=== PATIENT | female | born 1975 | race Caucasian/White ===

== ENCOUNTER 2017-01-27 15:39 | Emergency (ER) | payer MEDICARE, MEDICAID ==
[~2017-01-27] VITALS: Ht 162.6 cm; Wt 77.6 kg
[~2017-01-27 15:39] MED LIST: ARIP5TAB6 PO; ARIPIPRAZOLE; DIAZ5TAB PO; SUMA50TA3 PO; ZOLP-413; [UNRECOGNIZED DRUG - CODE] PO
[2017-01-27] MEDS ORDERED: OXYC-229 PO (16:25)
[2017-01-27] MEDS ORDERED: ZOLP-413 PO (16:25)
[2017-01-27] MEDS ORDERED: SODIUM CHLORIDE FLUSH 10ML SYR IVF ONE (17:00)
[2017-01-27] MEDS ORDERED: SODIUM CHLORIDE 0.9% 1,000ML IVBOLUS ONE (17:00)
[2017-01-27 17:07] LABS: ASPARTATE AMINO TRANSFERASE 17 U/L (15-37); BLOOD UREA NITROGEN 19 mg/dL (7-18)
[2017-01-27] MEDS ORDERED: KETOROLAC 30 MG/1 ML IM ONE (18:00)
[2017-01-27] MEDS ORDERED: KETOROLAC 30 MG/1 ML ONE (18:03)
[2017-01-27 18:08] VITALS: BP 129/66
== END 2017-01-27 18:15 | disposition home or self-care (01) ==
LOC: ED 18:00
DX: N30.00 Acute cystitis without hematuria (principal); R10.31 Right lower quadrant pain
CPT/HCPCS: 36415; 80053; 81001; 83690; 84703; 85025; 87077; 87086; 87186; 96360; 96372; 99284; J1885; J7030

== ENCOUNTER 2018-12-05 20:10 | Emergency (ER) | payer MEDICARE, MEDICAID ==
[~2018-12-05] VITALS: Ht 160 cm; Wt 78.0 kg
[~2018-12-05 20:10] MED LIST changes: +ARIP5TAB13 PO; -ARIP5TAB6 PO; +OXYC-307 PO; +ZOLP-413 PO; +[UNRECOGNIZED DRUG - CODE] PO; -[UNRECOGNIZED DRUG - CODE] PO
[2018-12-05 20:14] VITALS: BP 121/84
[2018-12-05] MEDS ORDERED: AZITHROMYCIN 250 MG TABLET ONE (20:29)
[2018-12-05] MEDS ORDERED: ACETAMINOPHEN 500 MG TABLET ONE (20:29)
[2018-12-05] MEDS ORDERED: IBUPROFEN 600 MG TABLET ONE (20:29)
[2018-12-05] MEDS ORDERED: AZITHROMYCIN 500 MG TABLET PO ONE (20:30)
[2018-12-05] MEDS ORDERED: IBUPROFEN 600 MG TABLET PO ONE (20:30)
[2018-12-05] MEDS ORDERED: LIDOCAINE 1%, 2ML INFIL ONE (20:30)
[2018-12-05] MEDS ORDERED: ACETAMINOPHEN 500 MG TABLET PO ONE (20:30)
== END 2018-12-05 20:54 | disposition home or self-care (01) ==
LOC: ED 20:45
DX: H66.93 Otitis media, unspecified, bilateral (principal)
CPT/HCPCS: 99284; J3490

== ENCOUNTER 2019-07-25 04:06 | Emergency (ER) | payer MEDICARE ==
[~2019-07-25] VITALS: Ht 160 cm; Wt 80.5 kg
[2019-07-25 04:11] VITALS: BP 136/81
[2019-07-25] MEDS ORDERED: DEXAMETHASONE 4 MG TABLET ONE (04:30)
[2019-07-25] MEDS ORDERED: DEXAMETHASONE 4 MG TABLET PO ONE (04:30)
[2019-07-25] MEDS ORDERED: BENZONATATE 100 MG CAPSULE ONE (04:30)
[2019-07-25] MEDS ORDERED: BENZONATATE 100 MG CAPSULE PO ONE (04:30)
== END 2019-07-25 04:37 | disposition home or self-care (01) ==
LOC: ED 04:30
DX: J20.8 Acute bronchitis due to other specified organisms (principal); J45.909 Unspecified asthma, uncomplicated; F17.200 Nicotine dependence, unspecified, uncomplicated; M06.9 Rheumatoid arthritis, unspecified
CPT/HCPCS: 99283

== ENCOUNTER 2020-01-15 09:51 | Emergency (ER) | payer MEDICARE, MEDICAID ==
[~2020-01-15] VITALS: Ht 160 cm; Wt 77.0 kg
--- NOTE | 2020-01-15 10:26 | NUR ---
PACKAGE LINER: PT TO ROOM FROM LOBBY AT THIS TIME. DOUG
--- NOTE | 2020-01-15 11:42 | NUR ---
[facility] CALLED PER PT REQUEST. PT TO FILL OUT ONLINE REPORT.
[2020-01-15 11:53] LABS: BASOPHILS # (AUTO) 0.05 x10^3/uL (0-0.1); BASOPHILS % (AUTO) 0 % (0-1); EOSINOPHILS # (AUTO) 0.21 x10^3/uL (0-0.4); EOSINOPHILS % (AUTO) 2 % (1-7); LYMPHOCYTES # (AUTO) 3.28 x10^3/uL (1-3.4); LYMPHOCYTES % (AUTO) 26 % (22-44); MD NO; MEAN CORPUSCULAR HEMOGLOBIN 30.7 pg (27.0-34.8); MEAN CORPUSCULAR HGB CONC 33.7 g/dL (32.4-35.8); MEAN CORPUSCULAR VOLUME 90.8 fL (80-100); MEAN PLATELET VOLUME 8.7 fL (7.4-10.4); MONOCYTES # (AUTO) 0.61 x10^3/uL (0.2-0.8); MONOCYTES % (AUTO) 5 % (2-9); NEUTROPHILS # (AUTO) 8.36 x10^3/uL (1.8-6.8); NEUTROPHILS % (AUTO) 67 % (42-75); PLATELET COUNT 360 x10^3/uL (130-400); RED BLOOD COUNT 4.41 x10^6/uL (3.82-5.3); RED CELL DISTRIBUTION WIDTH 14.2 % (9.6-15.2)
[2020-01-15 12:01] LABS: ALBUMIN 3.9 g/dL (3.4-5.0); CALCIUM 9.2 mg/dL (8.5-10.1); CHLORIDE 110 mmol/L (98-107); CREATININE 0.86 mg/dL (0.55-1.02)
[2020-01-15 12:13] LABS: ANION GAP 5 mmol/L (5-15)
[2020-01-15 12:18] LABS: MICROSCOPIC INDICATED
[2020-01-15] MEDS ORDERED: HYDROcodone/APAP 5/325 TABLET ONE (12:27)
[2020-01-15] MEDS ORDERED: HYDROcodone/APAP 5/325 TABLET PO ONE (12:30)
--- NOTE | 2020-01-15 12:51 | NUR ---
CHART UP FOR MD RECHECK. PT AWARE. PT MEDICATED FOR PAIN PER MD ORDER.
[2020-01-15 13:34] VITALS: BP 110/75
--- NOTE | 2020-01-15 13:42 | NUR ---
PT LEFT [facility] IN THE ROOM. [facility] GIVEN TO SECURITY.
== END 2020-01-15 13:36 | disposition home or self-care (01) ==
LOC: ED 11:20
DX: S90.01XA Contusion of right ankle, initial encounter (principal); S90.31XA Contusion of right foot, initial encounter; S09.90XA Unspecified injury of head, initial encounter; Z88.8 Allergy status to other drugs, medicaments and biological substances; Y04.8XXA Assault by other bodily force, initial encounter; Y93.89 Activity, other specified; Y92.009 Unspecified place in unspecified non-institutional (private) residence as the place of occurrence of the external cause; Y99.8 Other external cause status
CPT/HCPCS: 36415; 70450; 72125; 80048; 81001; 81025; 82040; 85025; 87086; 99285

== ENCOUNTER 2020-01-29 19:32 | Emergency (ER) | payer MEDICARE, MEDICAID ==
[~2020-01-29] VITALS: Ht 160 cm; Wt 79.2 kg
[2020-01-29 19:37] VITALS: BP 96/50
[2020-01-29] MEDS ORDERED: ACETAMINOPHEN 500 MG TABLET ONE (20:21)
[2020-01-29] MEDS ORDERED: PROCHLORPERAZINE 10MG TABLET ONE (20:21)
[2020-01-29] MEDS ORDERED: ACETAMINOPHEN 500 MG TABLET PO ONE (20:30)
[2020-01-29] MEDS ORDERED: PROCHLORPERAZINE 5 MG TABLET PO ONE (20:30)
[2020-01-29] MEDS ORDERED: LIDOCAINE-MPF 1%, 5ML ONE (20:46)
[2020-01-29] MEDS ORDERED: LIDOCAINE 1%, 10ML INFIL ONE (21:00)
[2020-01-29] MEDS ORDERED: LIDOCAINE-MPF 1%, 2ML INFIL ONE (21:00)
== END 2020-01-29 21:27 | disposition home or self-care (01) ==
LOC: ED 21:10
DX: G43.009 Migraine without aura, not intractable, without status migrainosus (principal); H66.92 Otitis media, unspecified, left ear; F17.200 Nicotine dependence, unspecified, uncomplicated; Z90.89 Acquired absence of other organs
CPT/HCPCS: 99283; J3490; Q0164

== ENCOUNTER 2020-02-16 10:09 | Emergency (ER) | payer MEDICAID, MEDICARE ==
[~2020-02-16] VITALS: Ht 160 cm; Wt 79.5 kg
--- NOTE | 2020-02-16 10:41 | NUR ---
PT STATES LT SIDED EAR INFECTION, ON ABX. PT STATES LT EAR PAIN STILL AND NOW HAS VAGINAL DISCHARGE. UA COLLECTED, SENT TO LAB. WILL FOLLOW ORDERS.
[2020-02-16 10:53] LABS: MICROSCOPIC INDICATED
[2020-02-16] MEDS ORDERED: KETOROLAC 30 MG/1 ML IM ONE (11:00)
[2020-02-16] MEDS ORDERED: KETOROLAC 60 MG/2 ML ONE (11:07)
[2020-02-16 11:10] LABS: BASOPHILS # (AUTO) 0.06 x10^3/uL (0-0.1); BASOPHILS % (AUTO) 1 % (0-1); EOSINOPHILS # (AUTO) 0.19 x10^3/uL (0-0.4); EOSINOPHILS % (AUTO) 2 % (1-7); LYMPHOCYTES # (AUTO) 3.06 x10^3/uL (1-3.4); LYMPHOCYTES % (AUTO) 27 % (22-44); MD NO; MEAN CORPUSCULAR HEMOGLOBIN 30.1 pg (27.0-34.8); MEAN CORPUSCULAR HGB CONC 32.4 g/dL (32.4-35.8); MEAN CORPUSCULAR VOLUME 92.7 fL (80-100); MONOCYTES # (AUTO) 0.72 x10^3/uL (0.2-0.8); MONOCYTES % (AUTO) 6 % (2-9); NEUTROPHILS % (AUTO) 65 % (42-75); PLATELET COUNT 327 x10^3/uL (130-400); RED BLOOD COUNT 4.32 x10^6/uL (3.82-5.3); RED CELL DISTRIBUTION WIDTH 14.6 % (9.6-15.2)
[2020-02-16 11:13] LABS: CLUE CELLS NONE SEEN (NONE SEEN)
[2020-02-16 11:14] LABS: WET PREP WBCS MANY (FEW)
[2020-02-16 11:22] LABS: ALBUMIN 3.6 g/dL (3.4-5.0); ANION GAP 5 mmol/L (5-15); CALCIUM 9.1 mg/dL (8.5-10.1); CHLORIDE 110 mmol/L (98-107); CREATININE 0.83 mg/dL (0.55-1.02)
[2020-02-16] MEDS ORDERED: CEFTRIAXONE 250 MG IM ONE (11:30)
[2020-02-16] MEDS ORDERED: AZITHROMYCIN 500 MG TABLET PO ONE (11:30)
--- NOTE | 2020-02-16 11:30 | NUR ---
PT RESTING IN BED, NO DISTRESS. AWAITING ALL RESULTS. CONT TO MONITOR.
[2020-02-16] MEDS ORDERED: AZITHROMYCIN 500 MG TABLET ONE (11:48)
[2020-02-16] MEDS ORDERED: CEFTRIAXONE 250 MG ONE (11:48)
[2020-02-16 12:11] LABS: HCG UR SG 1.026 (1.003-1.030)
--- NOTE | 2020-02-16 12:51 | NUR ---
PT GIVEN CRACKERS AND FOOD PER REQUEST. ALL RESULTS BACK, UP FOR ERMD RECHECK. WILL FOLLOW ORDERS.
[2020-02-16 13:09] VITALS: BP 108/78
--- NOTE | 2020-02-16 13:09 | NUR ---
PT D/C PER ORDERS. HAS ALL OWN BELONGINGS UPON D/C.
== END 2020-02-16 13:11 | disposition home or self-care (01) ==
LOC: ED 11:12
DX: A56.09 Other chlamydial infection of lower genitourinary tract (principal); H60.502 Unspecified acute noninfective otitis externa, left ear; Z88.1 Allergy status to other antibiotic agents; Z88.8 Allergy status to other drugs, medicaments and biological substances
CPT/HCPCS: 36415; 80048; 81001; 81025; 82040; 85025; 87077; 87086; 87210; 87491; 87591; 87808; 96372; 99284; J0696; J1885; 87186

== ENCOUNTER 2020-03-03 07:41 | Emergency (ER) | payer MEDICARE, MEDICAID ==
[~2020-03-03] VITALS: Ht 160 cm; Wt 79.4 kg
[2020-03-03 08:16] LABS: BASOPHILS # (AUTO) 0.05 x10^3/uL (0-0.1); BASOPHILS % (AUTO) 1 % (0-1); EOSINOPHILS # (AUTO) 0.13 x10^3/uL (0-0.4); EOSINOPHILS % (AUTO) 1 % (1-7); LYMPHOCYTES # (AUTO) 3.11 x10^3/uL (1-3.4); LYMPHOCYTES % (AUTO) 32 % (22-44); MD NO; MEAN CORPUSCULAR HEMOGLOBIN 30.3 pg (27.0-34.8); MEAN CORPUSCULAR HGB CONC 32.7 g/dL (32.4-35.8); MEAN CORPUSCULAR VOLUME 92.4 fL (80-100); MEAN PLATELET VOLUME 7.7 fL (7.4-10.4); MONOCYTES # (AUTO) 0.61 x10^3/uL (0.2-0.8); MONOCYTES % (AUTO) 6 % (2-9); NEUTROPHILS # (AUTO) 5.72 x10^3/uL (1.8-6.8); NEUTROPHILS % (AUTO) 60 % (42-75); PLATELET COUNT 325 x10^3/uL (130-400); RED BLOOD COUNT 4.32 x10^6/uL (3.82-5.3); RED CELL DISTRIBUTION WIDTH 14.3 % (9.6-15.2)
[2020-03-03] MEDS ORDERED: ONDANSETRON 2MG/ML, 2ML ONE (08:16)
[2020-03-03] MEDS ORDERED: MORPHINE SULFATE 4 MG/ML, 1ML ONE (08:16)
[2020-03-03 08:25] LABS: MICROSCOPIC INDICATED
[2020-03-03 08:28] LABS: ALANINE AMINOTRANSFERASE 27 U/L (12-78); ANION GAP 9 mmol/L (5-15); CHLORIDE 109 mmol/L (98-107); CREATININE 0.83 mg/dL (0.55-1.02)
[2020-03-03] MEDS ORDERED: MORPHINE SULFATE 4 MG/ML, 1ML IVPush PRN (08:30)
[2020-03-03] MEDS ORDERED: SODIUM CHLORIDE FLUSH 10ML SYR IVF ONE (08:30)
[2020-03-03] MEDS ORDERED: ONDANSETRON 2MG/ML, 2ML IVPush ONE (08:30)
[2020-03-03 08:32] LABS: ALKALINE PHOSPHATASE 90 U/L (45-117); BILIRUBIN,TOTAL 0.8 mg/dL (0.2-1.0); TOTAL PROTEIN 7.2 g/dL (6.4-8.2)
--- NOTE | 2020-03-03 08:37 | NUR ---
BREAK RN: PT TAKEN TO IMAGING IN STABLE CONDITION.
[2020-03-03 08:39] VITALS: BP 105/64
[2020-03-03] MEDS ORDERED: ONDANSETRON ODT 4 MG PO ONE (09:00)
[2020-03-03] MEDS ORDERED: KETOROLAC 30 MG/1 ML ONE (09:19)
[2020-03-03] MEDS ORDERED: KETOROLAC 30 MG/1 ML IM ONE (09:30)
--- NOTE | 2020-03-03 09:33 | NUR ---
Patient given discharge instructions and they have confirmed that they understand the instructions. Patient ambulatory with steady gait.
== END 2020-03-03 09:46 | disposition home or self-care (01) ==
LOC: ED 08:26
DX: K59.00 Constipation, unspecified (principal); R10.31 Right lower quadrant pain; R11.2 Nausea with vomiting, unspecified; F17.200 Nicotine dependence, unspecified, uncomplicated; Z90.89 Acquired absence of other organs
CPT/HCPCS: 36415; 74021; 80053; 81001; 84703; 85025; 87086; 96372; 99284; J1885

== ENCOUNTER 2021-02-20 03:09 | Emergency (ER) | payer MEDICARE, MEDICAID ==
[~2021-02-20] VITALS: Ht 162.6 cm; Wt 80.6 kg
[~2021-02-20 03:09] MED LIST changes: -OXYC-307 PO; +OXYC-380 PO
[2021-02-20 03:13] VITALS: BP 124/81
--- NOTE | 2021-02-20 03:37 | NUR ---
Pt swabbed for COVId by Dr. Paredes. Walked to lab
--- NOTE | 2021-02-20 05:22 | NUR ---
Patient/Caregiver given discharge instructions and they have confirmed that they understand the instructions. Patient ambulatory with steady gait. NAD, all questions answered appropriately, denies additional needs at this time. No personal belongings left in room after discharge.
== END 2021-02-20 05:23 | disposition home or self-care (01) ==
LOC: ED 04:52
DX: B34.9 Viral infection, unspecified (principal); Z20.822 Contact with and (suspected) exposure to COVID-19; F17.200 Nicotine dependence, unspecified, uncomplicated; G43.909 Migraine, unspecified, not intractable, without status migrainosus; M06.9 Rheumatoid arthritis, unspecified; J45.909 Unspecified asthma, uncomplicated
CPT/HCPCS: 71045; 99284; U0003; U0005

== ENCOUNTER 2021-04-03 06:22 | Emergency (ER) | payer MEDICARE, MEDICAID ==
[~2021-04-03] VITALS: Ht 162.6 cm; Wt 80.6 kg
[~2021-04-03 06:22] MED LIST changes: -OXYC-380 PO; +OXYC-501 PO
[2021-04-03 06:27] VITALS: BP 116/83
--- NOTE | 2021-04-03 07:09 | NUR ---
NA X 1 [id number]
--- NOTE | 2021-04-03 10:21 | NUR ---
NA X2
--- NOTE | 2021-04-03 11:11 | NUR ---
NA X3
== END 2021-04-03 11:12 | disposition left against medical advice (07) ==
LOC: ED 06:35
DX: R06.02 Shortness of breath (principal); R42 Dizziness and giddiness; Z53.21 Procedure and treatment not carried out due to patient leaving prior to being seen by health care provider